=== PATIENT | female | born 1965 | race Caucasian/White ===

== ENCOUNTER 2020-03-03 08:37 | Outpatient (CLI) | payer OTHER ==
--- NOTE | 2020-03-03 11:00 | ULT ---
THYROID ULTRASOUND: HISTORY: Abnormal thyroid stimulating hormone. FINDINGS: Thyroid isthmus: 0.67 cm. Right thyroid lobe: 7.9 x 3.7 x 4.4 cm. Left thyroid lobe: 9.4 x 3.2 x 3.3 cm. Thyroid nodule: Right thyroid lobe: Multiple thyroid nodules. Largest nodule is solid and slightly heterogeneous in e chotexture, measuring 1.8 x 0.9 x 1.7 cm. There are associated punctate calcifications. There is a second solid nodule in the right thyroid lobe measuring 1.2 x 1.5 x 1.4 cm. Additional nodules are no ayad. Left thyroid lobe: There are multiple subcentimeter hypoechoic nodules. There is a complex 2.0 x 2.0 x 2.0 cm nodule with a small focus of cystic formation in the lower pole of the left thyroid lobe. The margins of this lesion are slightly ill-defined. IMPRESSION: Multiple nodules throughout the left and right thyroid lobe. TIRADS level TR 4 moderately suspicious. Fine-needle aspiration of the solid nodule with calcifications in the mid right thyroid lobe is recommended as well as fine-needle aspiration of the predominantly solid nodule in the lower pole of the left thyroid lobe is recommended. Transcribed Date/Time: 03/03/2020 11:24 AM
== END 2020-03-03 08:38 | disposition home or self-care (01) ==
LOC: SCSULT 08:37
PROVIDERS: ATTEND Family Medicine
DX: R94.6 Abnormal results of thyroid function studies (principal); E04.2 Nontoxic multinodular goiter; E07.89 Other specified disorders of thyroid
CPT/HCPCS: 76536

== ENCOUNTER 2020-04-15 08:03 | Outpatient (CLI) | payer OTHER ==
--- NOTE | 2020-04-15 10:23 | CT ---
CT ABDOMEN WITHOUT CONTRAST: Date: 04/15/2020 HISTORY: Right-sided flank pain. FINDINGS: Absence of oral and IV contrast reduces the sensitivity of exam, particularly for evaluation of solid organs and bowel. A 3.0 mm peripheral nodule is seen in the posterior aspect of the right lower lobe. There are changes of cholecystectomy and appendectomy. No free air or free fluid is seen in the abdomen. A small hiata l hernia is present. There are small fat-containing anterior abdominal wall hernia. There is a 2.0 cm calculus in the dependent portion of the right renal pelvis. There is mild dilatati on of the right renal pelvis. No calculi are seen in the left kidney or visualized portions of either ureter. No significant hydroureteronephrosis is seen on either side. The aorta is normal caliber. There are degenerative changes in the spine. IMPRESSION: 1. 2.0 cm calculus in the right renal pelvis. 2. Hiatal hernia. 3. Small fat-containing anterior wall abdominal hernia. 4. 3.0 mm right basilar lung nodule. Dedicated CT scan of chest would be helpful. POS: AH
== END 2020-04-15 08:04 | disposition home or self-care (01) ==
LOC: BICCT 08:03
PROVIDERS: ATTEND Family Medicine
DX: N39.0 Urinary tract infection, site not specified (principal); I10 Essential (primary) hypertension; N20.0 Calculus of kidney; K44.9 Diaphragmatic hernia without obstruction or gangrene; K43.9 Ventral hernia without obstruction or gangrene; R91.1 Solitary pulmonary nodule
CPT/HCPCS: 74150

== ENCOUNTER 2020-05-18 12:48 | Day surgery (SDC) | payer OTHER ==
[2020-05-17 09:31] VITALS: BMI 35.5
[2020-05-18] MEDS ORDERED: Lidocaine 1% PF 5 ML VIAL ONE (12:54)
[2020-05-18] MEDS ORDERED: Sodium Bicarbonate 2.5 MEQ/5 ML VIAL ONE (12:54)
[2020-05-18 14:34] VITALS: BP 149/102; TEMP 98.4
--- NOTE | 2020-05-18 15:03 | ULT ---
Fine-needle aspiration thyroid nodule sonographic guided bilateral HISTORY: Bilateral thyroid masses. FINDINGS: After explaining the procedure and answering all questions, the lower neck was prepped and draped in usual sterile fashion. Sterile technique, buffered local anesthesia, sonographic guidance, and a medial approach were used t o carefully advance a 25-gauge needle into the partially calcified mass at the inferior pole of the right thyroid lobe. A total of 4 passes were made and submitted to pathology for evaluation. Attention was then turned to the complex mass at the mid/inferior aspect left thyroid lobe. A total o f 4 passes were made with a 25-gauge needle and sonographic guidance. Postprocedure imaging shows no evidence of complication. Patient tolerated the procedure well and was dismissed in good condition. IMPRESSION : Technically successful sonographic guided FNA bilateral thyroid nodules. Pathology is pending.
== END 2020-05-18 14:15 ==
LOC: ULT 12:48
PROVIDERS: ATTEND Specialist
PROC: 0GJK3ZZ Inspection of Thyroid Gland, Percutaneous Approach (ICD-10-PCS; principal; 2020-05-18)
PROC: BG44ZZZ Ultrasonography of Thyroid Gland (ICD-10-PCS; principal; 2020-05-18)
DX: E05.10 Thyrotoxicosis with toxic single thyroid nodule without thyrotoxic crisis or storm (principal); Z79.899 Other long term (current) drug therapy
CPT/HCPCS: 60100; 76942; 88173

== ENCOUNTER 2020-05-19 12:58 | Outpatient (CLI) | payer OTHER ==
[2020-05-18 14:17] VITALS: BMI 35.4
--- NOTE | 2020-05-19 13:47 | CT ---
CT chest noncontrast HISTORY: Lung nodule. COMPARISON: CT abdomen 04/15/2020. FINDINGS: Lungs are well-inflated. A 0.3 cm subpleural nodule at the right posterior lung base appear s slightly hyperdense on today's exam and may represent a calcified granuloma. No other lung nodules are evident. No pleural fluid, consolidation, or pneumothorax. Lack of contrast limits evaluation of the soft tissues. No mediastinal adenopathy evident. IMPRESSION : Isolated benign-appearing right lower lobe nodule. Follow-up not needed.
== END 2020-05-19 12:59 | disposition home or self-care (01) ==
LOC: BICCT 12:58
PROVIDERS: ATTEND Family Medicine
DX: R91.1 Solitary pulmonary nodule (principal)
CPT/HCPCS: 71250

== ENCOUNTER 2020-06-15 07:06 | Day surgery (SDC) | payer OTHER ==
[2020-06-11 11:29] VITALS: BMI 36.0
[2020-06-15] MEDS ORDERED: Fentanyl 100 MCG/2 ML VIAL ONE ×3 (07:08→11:49)
[2020-06-15] MEDS ORDERED: Levofloxacin 500 mg/D5W 100 ml Premix Bag ONE (08:38)
[2020-06-15] MEDS ORDERED: Dexamethasone 20 MG/5 ML VIAL ONE (10:35)
[2020-06-15] MEDS ORDERED: Ketorolac Tromethamine 30 MG/ML VIAL ONE (10:35)
[2020-06-15] MEDS ORDERED: PHENYLEPHRINE-NS 100 MCG/ML 10 ML SYRINGE ONE (10:35)
[2020-06-15] MEDS ORDERED: Ondansetron PF 4 MG/2 ML Vial ONE (10:35)
[2020-06-15] MEDS ORDERED: Lidocaine 1% PF 5 ML VIAL ONE (10:35)
[2020-06-15] MEDS ORDERED: PROPOFOL 200 MG/20 ML VIAL ONE (10:35)
[2020-06-15] MEDS ORDERED: ePHEDrine 50 MG/ML VIAL ONE (10:35)
[2020-06-15] MEDS ORDERED: Iothalamate Meglumine 60% 50 ML VIAL FS ONE (11:06)
[2020-06-15] MEDS ORDERED: Promethazine HCl 25 MG/ML VIAL ONE (11:49)
[2020-06-15] MEDS ORDERED: Oxybutynin 5 MG TAB ONE (12:54)
--- NOTE | 2020-06-15 16:26 | OP ---
DATE OF PROCEDURE: 06/15/2020 PREOPERATIVE DIAGNOSIS: Right renal stone. POSTOPERATIVE DIAGNOSES: Right renal stone, right ureteral stone, right ureterocele. PROCEDURES PERFORMED: Cystoscopy with laser incision of ureterocele, laser lithotripsy of distal right ureteral stone with basket extraction, retrograde pyelogram with intraoperative interpretation of radiologic imaging, ureteroscopy with laser of right renal stone, 6 x 26 double-J ureteral stent placement without string. ANESTHESIA: General. COMPLICATIONS: None. ESTIMATED BLOOD LOSS: Minimal. SPECIMEN: Right ureteral stone fragments. DESCRIPTION OF PROCEDURE: After informed consent, the patient was taken to the operating room, transferred to the table under her own power. Anesthesia was established. Time-out was performed, showing the correct patient, site, and procedure. Preoperative antibiotics were administered. She was prepped and draped in the lithotomy position. I began by inserting the cystoscope through the urethra into the bladder. The bladder was systematically examined noting a large bulge of the right ureter with a very small ureteral orifice. It did appear there was possibly stone behind the ureteral orifice. There were no mucosal abnormalities throughout the remainder of the bladder. A wire was passed into the ureteral orifice and into the renal pelvis under fluoroscopic guidance. On area forester imaging, there were what appeared to be two large stones in the renal pelvis and a large stone in the distal right ureter at least 2.5 cm in size. I inserted the semi-rigid ureteroscope and was unable to easily access the ureter and so a 273 micron laser fiber was used to incise the ureterocele transversely exposing a large stone. I was able to manipulate the stone out of the ureter after trimming it with a laser. The stone was too large to basket or remove cystoscopically and so I switched back to the cystoscope and used a 550 micron laser fiber to trim the stone down to one piece that I was able to remove with a basket. The residual stone fragments were irrigated out of the bladder. I then passed an access sheath into the right ureter up to the proximal ureter under fluoroscopic guidance. A retrograde pyelogram was performed through this showing good filling of the ureter and right hydronephrosis. A disposable ureteroscope was passed through the access sheath into the renal pelvis, where the stones were quickly encountered. These were treated with the 273 micron laser fiber, noting the stone was very hard and did not fragment easily. I was able to completely treat one of the stones and about chcf treat the second stone before visualization was too limited given the significant debris resulting from laser lithotripsy. At this point, I elected to remove the scope and access sheath, leaving the wire in place. A 6 x 26 double-J ureteral stent was passed over the wire with a curl in the kidney and curl in the bladder. Completion images were taken. Her bladder was drained. She was then awoken from anesthesia, transferred back to her hospital bed, and taken to PACU in stable condition, where she would return to her facility upon recovery. She will return in 2 or 3 weeks for completion ureteroscopy. Job ID: [id number]
[2020-06-21 20:09] LABS: Color Brown (.); Mg Ammon Phos 80 % (.); Stone Weight 287 mg (.)
== END 2020-06-15 14:05 ==
LOC: SDC 07:06
PROVIDERS: ATTEND Urology
PROC: 0TC38ZZ Extirpation of Matter from Right Kidney Pelvis, Via Natural or Artificial Opening Endoscopic (ICD-10-PCS; principal; 2020-06-15)
PROC: 0T768DZ Dilation of Right Ureter with Intraluminal Device, Via Natural or Artificial Opening Endoscopic (ICD-10-PCS; principal; 2020-06-15)
DX: N13.2 Hydronephrosis with renal and ureteral calculous obstruction (principal); N32.81 Overactive bladder; N39.0 Urinary tract infection, site not specified; Z79.899 Other long term (current) drug therapy; Z88.5 Allergy status to narcotic agent; Z91.040 Latex allergy status
CPT/HCPCS: 76000; 82365; 88300; J1100; J1885; J1956; J2405; J2550; J2704; J3010; J3490

== ENCOUNTER 2020-07-20 09:00 | Day surgery (SDC) | payer OTHER ==
[2020-07-01 11:38] VITALS: BMI 37.0
[2020-07-20] MEDS ORDERED: Fentanyl 100 MCG/2 ML VIAL ONE (09:14)
[2020-07-20] MEDS ORDERED: PHENYLEPHRINE-NS 100 MCG/ML 10 ML SYRINGE ONE (09:27)
[2020-07-20] MEDS ORDERED: Lidocaine 1% PF 5 ML VIAL ONE (09:27)
[2020-07-20] MEDS ORDERED: ePHEDrine 50 MG/ML VIAL ONE (09:27)
[2020-07-20] MEDS ORDERED: Ondansetron PF 4 MG/2 ML Vial ONE (09:27)
[2020-07-20] MEDS ORDERED: PROPOFOL 200 MG/20 ML VIAL ONE (09:27)
[2020-07-20] MEDS ORDERED: Dexamethasone 20 MG/5 ML VIAL ONE (09:27)
[2020-07-20] MEDS ORDERED: Levofloxacin 500 mg/D5W 100 ml Premix Bag ONE (09:36)
[2020-07-20 09:48] LABS: #Basophils 0.1 thou/uL (0.0-0.2); #Eosinphils 0.3 thou/uL (0.0-0.7); #Lymphocytes 1.7 thou/uL (1.20-3.40); #Monocytes 0.4 thou/uL (0.11-0.59); #Neutrophils 3.7 thou/uL (1.40-6.50); %Eosinophils 4.4 % (0.0-10.0); %Lymphocytes 27.7 % (21.0-51.0); %Monocytes 6.2 % (0.0-10.0); %Neutrophils 59.7 % (42.0-75.0); Hemoglobin 10.1 g/dL (12.0-16.0); Mean Corpuscular HGB CONC 32.8 g/dL (32.0-36.0); Mean Corpuscular Volume 76.3 fL (78.0-98.0); Mean Platelet Volume 8.4 fL (7.4-10.4); Platelet Count 251 thou/uL (130-400); RBC Distribution Width 15.2 % (11.5-14.5); Red Blood Cell (RBC) Count 4.05 mill/uL (4.20-5.40); White Blood Cell (WBC) Count 6.1 thou/uL (4.8-10.8)
[2020-07-20 10:03] LABS: Anion Gap 15 mmol/L (10-20); BUN (Urea Nitrogen) 17 mg/dL (9.8-20.1); Calc. Creatinine Clearance 173 mL/min (70-130); Calcium 9.1 mg/dL (7.8-10.44); Carbon Dioxide 23 mmol/L (22-29); Chloride 106 mmol/L (98-107); Glucose 96 mg/dL (70-105); Potassium 3.7 mmol/L (3.5-5.1); Sodium 140 mmol/L (136-145)
[2020-07-20] MEDS ORDERED: Iothalamate Meglumine 60% 50 ML VIAL FS ONE (11:25)
[2020-07-20] MEDS ORDERED: Oxybutynin 5 MG TAB ONE (12:45)
[2020-07-20] MEDS ORDERED: Ketorolac Tromethamine 30 MG/ML VIAL ONE (12:46)
== END 2020-07-20 14:48 | disposition home or self-care (01) ==
LOC: SDC 09:00
PROVIDERS: ATTEND Urology
PROC: 0T768DZ Dilation of Right Ureter with Intraluminal Device, Via Natural or Artificial Opening Endoscopic (ICD-10-PCS; principal; 2020-07-20)
PROC: 0TC38ZZ Extirpation of Matter from Right Kidney Pelvis, Via Natural or Artificial Opening Endoscopic (ICD-10-PCS; principal; 2020-07-20)
DX: N13.2 Hydronephrosis with renal and ureteral calculous obstruction (principal); Z79.899 Other long term (current) drug therapy; Z88.5 Allergy status to narcotic agent; Z91.040 Latex allergy status
CPT/HCPCS: 36415; 74420; 80048; 82365; 85025; 88300; J1100; J1885; J1956; J2405; J2704; J3010; J3490